=== PATIENT | male | born 1985 | race American Indian/Alaskan Native ===

== ENCOUNTER 2018-06-01 19:15 | Emergency (ER) | payer BC ==
[2018-06-01 19:18] VITALS: BMI 21.1
[2018-06-01 19:28] VITALS: BP 144/94; PULSE 117; RESP 20; TEMP 98; O2SAT 99
[2018-06-01 19:54] LABS: URINE BILIRUBIN NEGATIVE (NEGATIVE); URINE BLOOD NEGATIVE (NEGATIVE); URINE CLARITY CLEAR (Clear); URINE COLOR YELLOW (YELLOW); URINE GLUCOSE (UA) NORMAL (Normal); URINE PROTEIN NEGATIVE (NEGATIVE)
[2018-06-01 19:55] LABS: SQUAMOUS EPITHIAL 1 /hpf (0-5); URINE LEUKOCYTE ESTERASE 1+ Leu/uL (Negative)
--- NOTE | 2018-06-01 19:58 | C.PDOC ---
History Of Present Illness 32 yo male come in for evaluation of mild pain on urination, penile discharge developed since . Pt admits, (+) unprotected sex prior to onset of current sx. Pt denies fever, chills, abd. pain, N/V/D, back pain, hematuria, penile lesion, testicular pain or swelling. Ambulate to Ed for evaluation, not in any apparent distress. Time Seen by Provider: 06/01/18 19:29 Chief Complaint (Nursing): Male Genitourinary History Per: Patient Past Medical History Reviewed: Historical Data, Nursing Documentation, Vital Signs Vital Signs: Last Vital Signs Temp 98 F 06/01/18 19:24 Pulse 117 H 06/01/18 19:24 Resp 20 06/01/18 19:24 BP 144/94 H 06/01/18 19:24 Pulse Ox 99 06/01/18 19:24 - Medical History PMH: No Chronic Diseases, Fractures (right hand) Surgical History: No Surg Hx - [facility] Procedures EXCISION OF HYDROCELE (10/28/14) Family History: States: No Known Family Hx - Social History Hx Tobacco Use: Yes Hx Alcohol Use: Yes Hx Substance Use: Yes - Immunization History Hx Tetanus Toxoid Vaccination: No (REFUSED) Hx Influenza Vaccination: No (REFUSED) Hx Pneumococcal Vaccination: No (REFUSED) Review Of Systems Except As Marked, All Systems Reviewed And Found Negative. Constitutional: Negative for: Fever, Chills ENT: Negative for: Throat Pain Cardiovascular: Negative for: Chest Pain Respiratory: Negative for: Cough, Shortness of Breath, Wheezing Gastrointestinal: Negative for: Nausea, Vomiting, Abdominal Pain Genitourinary: Positive for: Dysuria, Penile Discharge. Negative for: Frequency, Incontinence, Hematuria, Scrotal Pain, Rash, Penile Pain Musculoskeletal: Negative for: Back Pain Skin: Negative for: Rash Neurological: Negative for: Weakness Physical Exam - Physical Exam Appears: Well, Non-toxic, No Acute Distress Skin: Normal Color, Warm, Dry, No Rash Head: Normacephalic Eye(s): bilateral: PERRL Nose: No Flaring, No Discharge Oral Mucosa: Moist Throat: No Erythema Neck: Trachea Midline, Supple Cardiovascular: Rhythm Regular Respiratory: No Decreased Breath Sounds, No Accessory Muscle Use, No Stridor, No Wheezing Gastrointestinal/Abdominal: Soft, No Tenderness, No Distention, No Guarding, No Rebound Back: No CVA Tenderness Extremity: Normal ROM, No Deformity, No Swelling Neurological/Psych: Oriented x3, Normal Speech ED Course And Treatment O2 Sat by Pulse Oximetry: 99 Pulse Ox Interpretation: Normal Progress Note: On re-eval, pt vince febrile, hemodynamicaly stable. Non-toxic, tolerate PO wlel in ED. ENT: no acute findings. Abd: benign. back: (-) CVA tenderness. UA (+) WBC c/w UTI. Pt reports sx started after unprotected sexual activty. Ucx, GC- pending. Pt was offered and accepted proph tx for STD. Pt advised. ref. to f/u with PMD, Urology in 2 -3 days for re-eavl. return if any new changes. Disposition Counseled Patient/Family Regarding: Studies Performed, Diagnosis, Need For Followup, Rx Given - Disposition Referrals: [facility] [Outside] Disposition: HOME/ ROUTINE Disposition Time: 20:00 Condition: STABLE Additional Instructions: Encourage fluids take medication as prescribed Encourage partner(s) to be checked and treated as well Practise safe sex Follow up with PMD, Urology in2 -3 days for re-evaluation. return to Ed if any worsening or new changes. Prescriptions: Doxycycline Hyclate [Doryx] 100 mg PO BID #14 cap Instructions: Screening for Sexually Transmitted Infections, Urethritis (DC), Safe Sex (ED) Forms: [employer] (Georgian) - Clinical Impression Clinical Impression: Urethritis, STD (male)
[2018-06-01] MEDS ORDERED: cefTRIAXone (Rocephin) 250 mg Inj IM STA (19:59)
== END 2018-06-01 20:29 | disposition home or self-care (01) ==
LOC: C.ER 19:15
DX: N34.2 Other urethritis (principal); A64 Unspecified sexually transmitted disease
CPT/HCPCS: 81001; 87086; 87491; 87591; 96372; 99283; J0696